=== PATIENT | male | born 1955 | race African-American/Black ===

== ENCOUNTER 2017-12-07 13:03 | Outpatient (RCR) | payer MEDICARE, MEDICAID ==
[~2017-12-07] VITALS: Ht 193 cm; Wt 116.1 kg
== END 2017-12-12 | disposition home or self-care (01) ==
LOC: WCC 13:03
DX: L97.522 Non-pressure chronic ulcer of other part of left foot with fat layer exposed (principal); M86.372 Chronic multifocal osteomyelitis, left ankle and foot; E11.621 Type 2 diabetes mellitus with foot ulcer; Z79.82 Long term (current) use of aspirin; Z79.84 Long term (current) use of oral hypoglycemic drugs
CPT/HCPCS: 82962; G0277; G0463

== ENCOUNTER 2017-12-07 14:13 | Outpatient (CLI) | payer MEDICARE, MEDICAID ==
--- NOTE | 2017-12-07 16:37 | Diagnostic Imaging Report ---
Indication: Cough Technique: 2 views of the chest Comparison: None Findings: Lungs and pleural spaces are clear. The heart size is normal. The bones are unremarkable. No significant interim change. Impression: Negative
== END 2017-12-07 16:13 | disposition home or self-care (01) ==
LOC: RAD 14:13
DX: R05 Cough (principal)
CPT/HCPCS: 71046

== ENCOUNTER 2017-12-14 07:40 | Outpatient (RCR) | payer MEDICARE, MEDICAID | END 2018-01-12 | disposition home or self-care (01) | LOC: WCC 07:40 | DX: L97.522 Non-pressure chronic ulcer of other part of left foot with fat layer exposed (principal); M86.372 Chronic multifocal osteomyelitis, left ankle and foot; E11.621 Type 2 diabetes mellitus with foot ulcer; Z88.0 Allergy status to penicillin; I10 Essential (primary) hypertension; Z79.82 Long term (current) use of aspirin; Z79.84 Long term (current) use of oral hypoglycemic drugs | CPT/HCPCS: 82962; G0277 ==

== ENCOUNTER 2018-01-13 08:30 | Outpatient (RCR) | payer MEDICARE, MEDICAID | END 2018-02-12 | disposition home or self-care (01) | LOC: WCC 08:30 | DX: M86.372 Chronic multifocal osteomyelitis, left ankle and foot (principal); E11.621 Type 2 diabetes mellitus with foot ulcer; L97.522 Non-pressure chronic ulcer of other part of left foot with fat layer exposed; Z88.0 Allergy status to penicillin; I10 Essential (primary) hypertension; Z79.84 Long term (current) use of oral hypoglycemic drugs; Z79.82 Long term (current) use of aspirin | CPT/HCPCS: 82962; G0277 ==

== ENCOUNTER 2018-09-16 13:28 | Outpatient (RCR) | payer MEDICARE, MEDICAID | END 2018-10-12 | disposition home or self-care (01) | LOC: WCC 13:28 | DX: T86.828 Other complications of skin graft (allograft) (autograft) (principal); Z88.0 Allergy status to penicillin; E11.9 Type 2 diabetes mellitus without complications; I10 Essential (primary) hypertension; E78.00 Pure hypercholesterolemia, unspecified; I25.2 Old myocardial infarction; I11.9 Hypertensive heart disease without heart failure; Z95.5 Presence of coronary angioplasty implant and graft; Z79.84 Long term (current) use of oral hypoglycemic drugs; Z79.82 Long term (current) use of aspirin; Z79.899 Other long term (current) drug therapy | CPT/HCPCS: 82962; G0277; G0463 ==

== ENCOUNTER 2018-11-15 08:08 | Outpatient (RCR) | payer MEDICARE, MEDICAID | END 2018-12-12 | disposition home or self-care (01) | LOC: WCC 08:08 | DX: T86.828 Other complications of skin graft (allograft) (autograft) (principal); Z88.0 Allergy status to penicillin; Z95.5 Presence of coronary angioplasty implant and graft; I25.2 Old myocardial infarction; I11.9 Hypertensive heart disease without heart failure; E11.9 Type 2 diabetes mellitus without complications; E78.00 Pure hypercholesterolemia, unspecified; Z79.899 Other long term (current) drug therapy; Z79.84 Long term (current) use of oral hypoglycemic drugs; Z79.82 Long term (current) use of aspirin | CPT/HCPCS: 82962; G0277; G0463 ==